=== PATIENT | male | born 1960 | race Native Hawaiian/Other Pacific Islander ===

== ENCOUNTER 2021-01-08 16:05 | Inpatient (IN) | payer OTHER ==
[~2021-01-08] VITALS: Ht 182.9 cm; Wt 79.0 kg
[2021-01-08 18:30] VITALS: BP 123/67; TEMP 98.6; Ht 182.9 cm; Wt 79.0 kg
[2021-01-08 20:00] VITALS: BP 123/68; TEMP 98.6
[2021-01-09 20:00] VITALS: BP 109/65; TEMP 98.4
[2021-01-10 08:00] VITALS: BP 123/69; TEMP 97.8
[2021-01-10 21:26] VITALS: BP 98/61; TEMP 98.6
[2021-01-11 08:00] VITALS: BP 108/63; TEMP 97.6
[2021-01-13 20:00] VITALS: BP 108/63; TEMP 98.2
[2021-01-14 20:00] VITALS: BP 98/57; TEMP 99
[2021-01-15 08:00] VITALS: BP 116/69; TEMP 98.1
[2021-01-15 20:00] VITALS: BP 100/63; TEMP 98.1
[2021-01-16 20:00] VITALS: BP 109/63; TEMP 99.1
[2021-01-17 08:00] VITALS: BP 146/77; TEMP 98.1
[2021-01-17 20:36] VITALS: BP 104/66; TEMP 98.3
[2021-01-18 08:00] VITALS: BP 101/63; TEMP 97.8
[2021-01-19 08:00] VITALS: BP 124/69; TEMP 98.1
[2021-01-19 20:00] VITALS: BP 125/65; TEMP 98.5
[2021-01-20 08:00] VITALS: BP 116/65; BP 121/74; TEMP 97.3; TEMP 97.9
== END 2021-01-21 16:00 | disposition home or self-care (01) | DRG 561 ==
LOC: SWING 16:05 → MED/SURG 18:01
PROVIDERS: ADMIT Internal Medicine Endocrinology, Diabetes & Metabolism; ATTEND Internal Medicine Endocrinology, Diabetes & Metabolism
DX: Z47.1 Aftercare following joint replacement surgery (principal); Z96.642 Presence of left artificial hip joint; M16.12 Unilateral primary osteoarthritis, left hip; I73.9 Peripheral vascular disease, unspecified; M62.81 Muscle weakness (generalized); Z74.1 Need for assistance with personal care; R26.2 Difficulty in walking, not elsewhere classified; R26.81 Unsteadiness on feet; M25.561 Pain in right knee; Z72.0 Tobacco use; K59.00 Constipation, unspecified; G47.00 Insomnia, unspecified
CPT/HCPCS: 87081